=== PATIENT | female | born 1955 | race Caucasian/White ===

== ENCOUNTER 2020-07-08 01:29 | Emergency (ER) | payer SELFPAY ==
[~2020-07-08] VITALS: Ht 157.5 cm; Wt 64.0 kg
[2020-07-08 01:32] VITALS: BP 128/81
== END 2020-07-08 02:04 | disposition left against medical advice (07) ==
LOC: ER 01:29
DX: R07.89 Other chest pain (principal); Z13.9 Encounter for screening, unspecified
CPT/HCPCS: 99283